=== PATIENT | female | born 1995 | race Caucasian/White ===

== ENCOUNTER 2016-07-03 16:30 | Emergency (ER) | payer BC ==
[2016-07-03 17:14] VITALS: BP 100/65
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
[2016-07-03] MEDS ORDERED: Ibuprofen 600 MG Tab PO ONE (18:26)
== END 2016-07-03 21:01 | disposition home or self-care (01) ==
LOC: JD.ED 16:30
DX: F41.8 Other specified anxiety disorders (principal); K21.9 Gastro-esophageal reflux disease without esophagitis; Z79.899 Other long term (current) drug therapy
CPT/HCPCS: 36415; 80053; 80306; 81001; 84443; 84702; 85025; 99285; A9270; 99283

== ENCOUNTER 2016-10-01 12:43 | Emergency (ER) | payer BC ==
[2016-10-01 12:54] VITALS: BP 115/69
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
== END 2016-10-01 14:45 | disposition home or self-care (01) ==
LOC: JD.ED 12:43
DX: S66.912A Strain of unspecified muscle, fascia and tendon at wrist and hand level, left hand, initial encounter (principal); F31.9 Bipolar disorder, unspecified; K21.9 Gastro-esophageal reflux disease without esophagitis; Z79.899 Other long term (current) drug therapy; Y04.0XXA Assault by unarmed brawl or fight, initial encounter
CPT/HCPCS: 99283; 99284

== ENCOUNTER 2018-04-20 06:58 | Inpatient (IN) | payer OTHER ==
[2018-04-20] MEDS ORDERED: Misoprostol 25 MCG (1/4 of 100 MCG) Tab ONE (07:53)
[2018-04-20] MEDS ORDERED: Bupivacaine 0.5% 30 ML SDV ONE (08:01)
--- NOTE | 2018-04-20 08:11 | PCM.LDHP ---
L&D History of Present Illness - General Date of Service: 04/20/18 Admit Problem/Dx: Admission Diagnosis/Problem Admission Diagnosis/Problem Source of Information: Patient History Limitations: Reports: No Limitations - History of Present Illness Introduction:: 23-year-old 002 [place] 04/21/18. Estimated gestational age 39 weeks and 6 days. Presented to labor and delivery for induction of labor GBS negative. Patient has gestational diabetes taking glyburide 2.5 mg at breakfast and lunch and supper. Blood type A- antibody screen negative hemoglobin hematocrit 13.1 39.3 on 09/19/17. Platelets 209,000. Rubella immune. Serology nonreactive. Urine culture mixed marjan. Hepatitis B surface antigen negative. HIV negative. GC and chlamydia probe negative TSH within normal limits. 01/17/18 hemoglobin/hematocrit 10.3/32.6 platelets 178,000, 1 hour OB glucose screen 141. Three-hour glucose tolerance test fasting 73, 1 hour 143, two-hour 166, 3 hour 157. Antibody screen negative RhoGam given on 01/17/18. RPR nonreactive. 03/09/18 hemoglobin/hematocrit 10.5/35.0 platelets 154,000. 03/27/18 group B strep negative. Plan induction and delivery. This note was created, at least in part, by the use of [employer] voice dictation system. Inadvertent typographical errors, due to software recognition problems, may exist. Improves with: Reports: None Worsens with: Reports: None Associated Symptoms: Reports: N - Related Data Allergies/Adverse Reactions: Allergies Allergy/AdvReac Type Severity Reaction Status Date / Time No Known Allergies Allergy Verified 10/01/16 12:53 Home Medications: Home Meds Acetaminophen [Tylenol] 650 mg PO Q4H PRN #0 tablet 12/17/15 [Rx] Ibuprofen [IJD: Ibuprofen] 600 mg PO Q6H PRN #0 tablet 12/17/15 [Rx] Control 1 tab PO DAILY 07/03/16 [History] lamoTRIgine [Lamotrigine] 200 mg PO DAILY 07/03/16 [History] ClonazePAM [KlonoPIN] 0.25 mg PO BID PRN 10/01/16 [History] QUEtiapine [SEROquel] 25 mg PO BEDTIME 10/01/16 [History] Past Medical History - Past Health History Medical/Surgical History: Denies Medical/Surgical History Cardiovascular History: Reports: None Respiratory History: Reports: None Gastrointestinal History: Reports: GERD Genitourinary History: Reports: None 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: Musculoskeletal History: Reports: Fibromyalgia Neurological History: Reports: None Psychiatric History: Reports: Anxiety, Bipolar, Depression Other Psychiatric History: ;hypermania Endocrine/Metabolic History: Reports: None Hematologic History: Reports: Anemia Other Hematologic History: induced Immunologic History: Reports: None Oncologic (Cancer) History: Reports: None Dermatologic History: Reports: None - Past Surgical History Head Surgeries/Procedures: Reports: None Social & Family History - Family History Family Medical History: Noncontributory - Caffeine Use Caffeine Use: Reports: Coffee H&P Review of Systems - Review of Systems: Review Of Systems: See Below General: Reports: No Symptoms HEENT: Reports: No Symptoms Pulmonary: Reports: No Symptoms Cardiovascular: Reports: No Symptoms Gastrointestinal: Reports: No Symptoms Genitourinary: Reports: No Symptoms Musculoskeletal: Reports: No Symptoms Skin: Reports: No Symptoms Psychiatric: Reports: No Symptoms Neurological: Reports: No Symptoms Hematologic/Lymphatic: Reports: No Symptoms Immunologic: Reports: No Symptoms L&D Exam - Exam Exam: See Below - OB Specific Fundal Height In cm: 39 Movement: Active Heart Tones: Present Heart Tones per Min: 135 Heart Rate (FHR) Variability: Moderate (6-25 bmp) Presentation: Vertex - Conteh Score Conteh Score Cervix Position: Posterior Conteh Score Consistency: Soft Conteh Score Effacement: 0-30% Conteh Score Dilation: 1-2 cm Conteh Score Infant's Station: -1 ,0 Conteh Score Total: 5 - Exam General: Alert, Oriented HEENT: Conjunctiva Clear, Mucosa Moist & [place], Pupils Equal, PERRLA Neck: Supple, Trachea Midline Lungs: Clear to Auscultation, Normal Respiratory Effort Cardiovascular: Regular Rate, Regular Rhythm GI/Abdominal Exam: Normal Bowel Sounds, Soft Genitourinary: Normal external exam Extremities: Normal Inspection, Normal Range of Motion, Non-Tender, No Pedal Edema, Normal Capillary Refill Skin: Warm, Dry, Intact Neurological: Reflexes Equal Bilateral Psychiatric: Alert, Normal Affect, Normal Mood - Problem List (1) 39 weeks gestation of SNOMED Code(s): 55773437 ICD Code: Z3A.39 - 39 WEEKS GESTATION OF Status: Acute Current Visit: Yes (2) Gestational diabetes mellitus (GDM) affecting third SNOMED Code(s): 63368108477818 ICD Code: O24.419 - GESTATIONAL DIABETES MELLITUS IN , UNSP CONTROL Status: Acute Current Visit: Yes Problem List Initiated/Reviewed/Updated: No Assessment/Plan Comment:: Plan induction and delivery. For Cytotec 25 g placed at 0800 hrs.
[2018-04-20] MEDS ORDERED: Sodium Chloride 0.9% 10 ML Syringe FLUSH PRN (08:15)
[2018-04-20] MEDS ORDERED: Nalbuphine 20 MG/ML 1 ML Syringe IVPUSH PRN (08:15)
[2018-04-20] MEDS ORDERED: Oxytocin/Lactated Ringers 10 UNIT/1,000 ML BAG IV SCH ×2 (08:15)
[2018-04-20] MEDS ORDERED: Misoprostol 25 MCG (1/4 of 100 MCG) Tab VAG ONE (08:19)
[2018-04-20] MEDS ORDERED: Misoprostol 25 MCG (1/4 of 100 MCG) Tab VAG SCH (11:00)
--- NOTE | 2018-04-20 11:24 | PCM.SN ---
- Free Text/Narrative Note: Amniotomy performed at 111904/20/18 clear fluid cervix 2-3 cm dilated 70% effaced soft posterior cephalic presentation -1 station heart tones category 1
[2018-04-20] MEDS ORDERED: Ondansetron 4 MG/2 ML SDV IVPUSH PRN (11:42)
[2018-04-20] MEDS ORDERED: fentaNYL 100 MCG/2 ML SDV EPIDUR PRN (11:42)
[2018-04-20] MEDS ORDERED: diphenhydrAMINE 50 MG/ML SDV IVPUSH PRN (11:42)
[2018-04-20] MEDS ORDERED: ePHEDrine 50 MG/ML SDV IVPUSH PRN (11:42)
[2018-04-20] MEDS ORDERED: fentaNYL/Bupivacaine-NS 2 MCG/ML-0.125%/PF 100 ML Bag EP SCH (11:45)
[2018-04-20] MEDS: Lactated Ringers 1,000 ML IV SCH ×3 (12:14→13:00)
--- NOTE | 2018-04-20 12:36 | PCM.PREANE ---
Preanesthetic Assessment - Anesthesia/Transfusion/Family Hx Anesthesia History: Prior Anesthesia Without Reaction Family History of Anesthesia Reaction: No Transfusion History: Prior Transfusion Without Reaction - Review of Systems General: No Symptoms Pulmonary: No Symptoms Cardiovascular: No Symptoms Gastrointestinal: Abdominal Pain Neurological: No Symptoms Other: Reports: None - Physical Assessment O2 Sat by Pulse Oximetry: 97 Respiratory Rate: 18 Vital Signs: Last Vital Signs Temp 37.1 C 04/20/18 07:23 Pulse 86 04/20/18 07:23 Resp 18 04/20/18 07:23 BP 107/77 04/20/18 07:23 Pulse Ox 97 04/20/18 07:23 Height: 1.65 m Weight: 89.675 kg ASA Class: 2 Mental Status: Alert & Oriented x3 Airway Class: Mallampati = 1 Dentition: Reports: Normal Dentition Thyro-Mental Finger Breadths: 3 Mouth Opening Finger Breadths: 3 ROM/Head Extension: Full Lungs: Clear to Auscultation, Normal Respiratory Effort Cardiovascular: Regular Rate, Regular Rhythm - Lab Values: Laboratory Last Values WBC 10.29 K/mm3 (3.98-10.04) H 04/20/18 08:30 RBC 4.08 M/mm3 (3.98-5.22) 04/20/18 08:30 Hgb 10.8 gm/L (11.2-15.7) L 04/20/18 08:30 Hct 34.6 % (34.1-44.9) 04/20/18 08:30 MCV 84.8 fl (79.4-94.8) 04/20/18 08:30 MCH 26.5 pg (25.6-32.2) 04/20/18 08:30 MCHC 31.2 g/dl (32.2-35.5) L 04/20/18 08:30 RDW Std Deviation 60.3 fL (36.4-46.3) H 04/20/18 08:30 Plt Count 122 K/mm3 (182-369) L 04/20/18 08:30 MPV 11.5 fl (9.4-12.3) 04/20/18 08:30 Neut % (Auto) 79.6 % (34.0-71.1) H 04/20/18 08:30 Lymph % (Auto) 14.1 % (19.3-51.7) L 04/20/18 08:30 Person % (Auto) 4.7 % (4.7-12.5) 04/20/18 08:30 Eos % (Auto) 1.0 (0.7-5.8) 04/20/18 08:30 Baso % (Auto) 0.1 % (0.1-1.2) 04/20/18 08:30 Neut # (Auto) 8.20 K/mm3 (1.56-6.13) H 04/20/18 08:30 Lymph # (Auto) 1.45 K/mm3 (1.18-3.74) 04/20/18 08:30 Person # (Auto) 0.48 K/mm3 (0.24-0.36) H 04/20/18 08:30 Eos # (Auto) 0.10 K/mm3 (0.04-0.36) 04/20/18 08:30 Baso # (Auto) 0.01 K/mm3 (0.01-0.08) 04/20/18 08:30 Blood Type A NEGATIVE 04/20/18 08:30 Gel Antibody Screen Positive 04/20/18 08:30 Crossmatch See Detail 04/20/18 08:30 - Allergies Allergies/Adverse Reactions: Allergies Allergy/AdvReac Type Severity Reaction Status Date / Time No Known Allergies Allergy Verified 10/01/16 12:53 - Acknowledgements Anesthesia Type Planned: Epidural Pt an Appropriate Candidate for the Planned Anesthesia: Yes Alternatives and Risks of Anesthesia Discussed w Pt/Guardian: Yes Pt/Guardian Understands and Agrees with Anesthesia Plan: Yes PreAnesthesia Questionnaire - Past Health History Medical/Surgical History: Denies Medical/Surgical History Cardiovascular History: Reports: None Respiratory History: Reports: None Gastrointestinal History: Reports: GERD Genitourinary History: Reports: 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: Musculoskeletal History: Reports: Fibromyalgia Neurological History: Reports: None Psychiatric History: Reports: Anxiety, Bipolar, Depression, PTSD Other Psychiatric History: ;hypermania Endocrine/Metabolic History: Reports: None Hematologic History: Reports: Anemia Other Hematologic History: induced Immunologic History: Reports: None Oncologic (Cancer) History: Reports: None Dermatologic History: Reports: None - Past Surgical History Head Surgeries/Procedures: Reports: None - SUBSTANCE USE Smoking Status *Q: Never Smoker Second Hand Smoke Exposure: No Recreational Drug Use History: No - HOME MEDS Home Medications: Home Meds Acetaminophen [Tylenol] 650 mg PO Q4H PRN #0 tablet 12/17/15 [Rx] Ibuprofen [IJD: Ibuprofen] 600 mg PO Q6H PRN #0 tablet 12/17/15 [Rx] Control 1 tab PO DAILY 07/03/16 [History] lamoTRIgine [Lamotrigine] 200 mg PO DAILY 07/03/16 [History] ClonazePAM [KlonoPIN] 0.25 mg PO BID PRN 10/01/16 [History] QUEtiapine [SEROquel] 25 mg PO BEDTIME 10/01/16 [History] - CURRENT (IN HOUSE) MEDS Current Meds: Current Medications Diphenhydramine HCl (Benadryl) 25 mg IVPUSH Q6H PRN PRN Reason: Pruritis Ephedrine Sulfate (Ephedrine Sulfate) 5 mg IVPUSH ASDIRECTED PRN PRN Reason: Hypotension Fentanyl (Sublimaze) 100 mcg EPIDUR ONETIME PRN PRN Reason: Pain Last Admin: 04/20/18 12:34 Dose: 100 mcg Fentanyl/Bupivacaine HCl (Rcmnyxzo-Sstor-Ya 2 Mcg/Ml-0.125%) 100 ml EP ASDIRECTED HARPER Last Admin: 04/20/18 12:34 Dose: 100 ml Lactated Ringer's (Ringers, Lactated) 1,000 mls @ 100 mls/hr IV ASDIRECTED HARPER Last Admin: 04/20/18 12:15 Dose: 100 mls/hr Oxytocin/Lactated Ringer's (Pitocin In Lr 10 Units/1,000 Ml) 10 unit in 1,000 mls @ 12 mls/hr IV TITRATE HARPER; Protocol Oxytocin/Lactated Ringer's (Pitocin In Lr 10 Units/1,000 Ml) 10 unit in 1,000 mls @ 500 mls/hr IV .CONTINUOUS HARPER Misoprostol (Cytotec) 50 mcg VAG Q3HR HAREPR Nalbuphine HCl (Nubain) 10 mg IVPUSH Q2H PRN PRN Reason: pain Ondansetron HCl (Zofran) 4 mg IVPUSH ONETIME PRN PRN Reason: Nausea/Vomiting Sodium Chloride (Saline Flush) 10 ml FLUSH ASDIRECTED PRN PRN Reason: Keep Vein Open Discontinued Medications Bupivacaine HCl (Marcaine 0.5%) Confirm Administered Dose 30 ml .ROUTE .STK-MED ONE Stop: 04/20/18 08:02 Misoprostol (Cytotec) Confirm Administered Dose 25 mcg .ROUTE .STK-MED ONE Stop: 04/20/18 07:54 Misoprostol (Cytotec) 25 mcg VAG ONETIME ONE Stop: 04/20/18 08:20 Last Admin: 04/20/18 07:55 Dose: 25 mcg
--- NOTE | 2018-04-20 16:06 | PCM.SN ---
- Free Text/Narrative Note: Cervix 8 cm, 100% effaced, soft, posterior, vertex at 0 station. Cat I FHR
[2018-04-20] MEDS ORDERED: Misoprostol 200 MCG Tab PO ONE (16:15)
[2018-04-20] MEDS ORDERED: Oxytocin/Lactated Ringers 20 UNIT/1,000 ML BAG IV SCH (16:15)
--- NOTE | 2018-04-20 16:54 | PCM.DEL ---
L & D Note - General Info Date of Service: 04/20/18 Mother's Due Date: 04/21/18 - Delivery Note Labor: Augmented by ARM, Augmented by Oxytocin Cervical Ripening Method: Misoprostil (25 mcg x1) Delivery Outcome: Livebirth (Male liveborn 04/20/18 at 1635 hrs. DOUGLAS no nuchal cord Apgars 8/9 weight 3780 grams/8 pounds 5.3 ounces) Infant Delivery Method: Spontaneous Vaginal Delivery-Single Delivery Mode: Spontaneous Presentation: Right Occiput Anterior (DOUGLAS) Nuchal Cord: None Prep: Povidone-Iodine (Betadine Anesthesia Type: Epidural Amniotic Fluid Description: Clear Episiotomy Type: None Laceration: 1st Degree (Approximate 1 x 1 cm sutured with 3-0 Monocryl times one gkadfj-wv-gukps suture.) Suture type: Other (Monocryl) Suture size: 3-0 Placenta: Intact, Spontaneous (Examined intact discarded [id number]) Cord: 3 Vessels Estimated Blood Loss: 250 Resuscitation Needed: No : Suctioned, Bulb Syringe, Stimulated, Warmed, [place] Used, Warmer Used Provider: Pablo Cerna Score 1 min: 8 Score 5 min: 9 - General Info Date of Service: 04/20/18 Functional Status: Reports: Pain Controlled - Review of Systems General: Reports: No Symptoms HEENT: Reports: No Symptoms Pulmonary: Reports: No Symptoms Cardiovascular: Reports: No Symptoms Gastrointestinal: Reports: No Symptoms Genitourinary: Reports: No Symptoms Musculoskeletal: Reports: No Symptoms Skin: Reports: No Symptoms Neurological: Reports: No Symptoms Psychiatric: Reports: No Symptoms - Patient Data Vitals - Most Recent: Last Vital Signs Temp 98.7 F 04/20/18 07:23 Pulse 86 04/20/18 07:23 Resp 18 04/20/18 12:36 BP 107/77 04/20/18 07:23 Pulse Ox 97 04/20/18 12:36 Weight - Most Recent: 197 lb 11.2 oz Lab Results Last 24 Hours: Laboratory Results - last 24 hr 04/20/18 04/20/18 Range/Units 08:30 08:30 WBC 10.29 H (3.98-10.04) K/mm3 RBC 4.08 (3.98-5.22) M/mm3 Hgb 10.8 L (11.2-15.7) gm/L Hct 34.6 (34.1-44.9) % MCV 84.8 (79.4-94.8) fl MCH 26.5 (25.6-32.2) pg MCHC 31.2 L (32.2-35.5) g/dl RDW Std Deviation 60.3 H (36.4-46.3) fL Plt Count 122 L (182-369) K/mm3 MPV 11.5 (9.4-12.3) fl Neut % (Auto) 79.6 H (34.0-71.1) % Lymph % (Auto) 14.1 L (19.3-51.7) % [place] % (Auto) 4.7 (4.7-12.5) % Eos % (Auto) 1.0 (0.7-5.8) Baso % (Auto) 0.1 (0.1-1.2) % Neut # (Auto) 8.20 H (1.56-6.13) K/mm3 Lymph # (Auto) 1.45 (1.18-3.74) K/mm3 [place] # (Auto) 0.48 H (0.24-0.36) K/mm3 Eos # (Auto) 0.10 (0.04-0.36) K/mm3 Baso # (Auto) 0.01 (0.01-0.08) K/mm3 Blood Type A NEGATIVE Gel Antibody Screen Positive Crossmatch See Detail Med Orders - Current: Current Medications Diphenhydramine HCl (Benadryl) 25 mg IVPUSH Q6H PRN PRN Reason: Pruritis Last Admin: 04/20/18 14:57 Dose: 25 mg Ephedrine Sulfate (Ephedrine Sulfate) 5 mg IVPUSH ASDIRECTED PRN PRN Reason: Hypotension Fentanyl (Sublimaze) 100 mcg EPIDUR ONETIME PRN PRN Reason: Pain Last Admin: 04/20/18 12:34 Dose: 100 mcg Fentanyl/Bupivacaine HCl (Hiypnlrp-Glppc-Kd 2 Mcg/Ml-0.125%) 100 ml EP ASDIRECTED HARPER Last Admin: 04/20/18 12:34 Dose: 100 ml Lactated Ringer's (Ringers, Lactated) 1,000 mls @ 100 mls/hr IV ASDIRECTED HARPER Last Admin: 04/20/18 13:00 Dose: 100 mls/hr Oxytocin/Lactated Ringer's (Pitocin In Lr 10 Units/1,000 Ml) 10 unit in 1,000 mls @ 12 mls/hr IV TITRATE HARPER; Protocol Last Titration: 04/20/18 14:46 Dose: 1,444 munits/min, 8,664 mls/hr Oxytocin/Lactated Ringer's (Pitocin In Lr 10 Units/1,000 Ml) 10 unit in 1,000 mls @ 500 mls/hr IV .CONTINUOUS HARPER Oxytocin 20 unit/ Lactated (Ringer's) 1,002 mls @ 1,503 mls/hr IV ASDIRECTED HARPER Oxytocin/Lactated Ringer's (Pitocin In Lr 20 Units/1,000 Ml) 20 unit in 1,000 mls @ 500 mls/hr IV ASDIRECTED HARPER Misoprostol (Cytotec) 50 mcg VAG Q3HR HARPER Nalbuphine HCl (Nubain) 10 mg IVPUSH Q2H PRN PRN Reason: pain Ondansetron HCl (Zofran) 4 mg IVPUSH ONETIME PRN PRN Reason: Nausea/Vomiting Sodium Chloride (Saline Flush) 10 ml FLUSH ASDIRECTED PRN PRN Reason: Keep Vein Open Discontinued Medications Bupivacaine HCl (Marcaine 0.5%) Confirm Administered Dose 30 ml .ROUTE .STK-MED ONE Stop: 04/20/18 08:02 Oxytocin 20 unit/ Lactated (Ringer's) 1,002 mls @ 1,503 mls/hr IV TITRATE HARPER Misoprostol (Cytotec) Confirm Administered Dose 25 mcg .ROUTE .STK-MED ONE Stop: 04/20/18 07:54 Misoprostol (Cytotec) 25 mcg VAG ONETIME ONE Stop: 04/20/18 08:20 Last Admin: 04/20/18 07:55 Dose: 25 mcg Misoprostol (Cytotec) 400 mcg PO ONETIME ONE Stop: 04/20/18 16:16 - Exam General: Alert, Oriented HEENT: Pupils Equal Neck: Supple GI/Abdominal Exam: Soft, Non-Tender (Female) Exam: Normal External Exam Extremities: Normal Inspection, Normal Range of Motion, Non-Tender, No Pedal Edema, Normal Capillary Refill Skin: Warm, Dry, Intact Psy/Mental Status: Alert, Normal Affect, Normal Mood - Problem List & Annotations (1) 39 weeks gestation of SNOMED Code(s): 26217156 Code(s): Z3A.39 - 39 WEEKS GESTATION OF Status: Acute Current Visit: Yes (2) Gestational diabetes mellitus (GDM) affecting third SNOMED Code(s): 30074579550876 Code(s): O24.419 - GESTATIONAL DIABETES MELLITUS IN , UNSP CONTROL Status: Acute Current Visit: Yes (3) First degree perineal laceration SNOMED Code(s): 37917513 Code(s): O70.0 - FIRST DEGREE PERINEAL LACERATION DURING DELIVERY Status: Acute Current Visit: Yes (4) Encounter for full-term uncomplicated delivery SNOMED Code(s): 87716147, 240145767 Code(s): O80 - ENCOUNTER FOR FULL-TERM UNCOMPLICATED DELIVERY Status: Acute Current Visit: Yes - Problem List Review Problem List Initiated/Reviewed/Updated: No - My Orders Last 24 Hours: My Active Orders 04/20/18 08:15 Lactated Ringers [Ringers, Lactated] 1,000 ml IV ASDIRECTED Nalbuphine [Nubain] 10 mg IVPUSH Q2H PRN Oxytocin/Lactated Ringers [Pitocin in LR 10 Units/1,000 ML] 10 unit in 1,000 ml IV .CONTINUOUS Oxytocin/Lactated Ringers [Pitocin in LR 10 Units/1,000 ML] 10 unit in 1,000 ml IV TITRATE Sodium Chloride 0.9% [Saline Flush] 10 ml FLUSH ASDIRECTED PRN Resuscitation Status Routine 04/20/18 08:16 Patient Status [ADT] Routine Activity as Tolerated [RC] PFP Communication Order [RC] ASDIRECTED Non Stress Test [RC] PER UNIT ROUTINE Notify Provider [RC] PFP Notify Provider [RC] PRN Vital Signs [RC] PER UNIT ROUTINE Electronic Heart Tones Ext w TOCO [WOMSER] Routine Electronic Heart Tones Internal [WOMSER] Per Unit Routine Peripheral IV Insertion Adult [OM.PC] Routine 04/20/18 08:17 Heart Tones [RC] ASDIRECTED Peripheral IV Care [RC] . DIRECTED 04/20/18 08:30 ANTIBODY IDENTIFICATION [BBK] Stat RAPID PLASMA REAGIN,RPR [CHEM] Routine RED BLOOD CELLS LP [BBK] Routine TYPE AND SCREEN [BBK] Stat 04/20/18 11:00 miSOPROStol [Cytotec] 50 mcg VAG Q3HR 04/20/18 16:15 Oxytocin [Pitocin] 20 unit Lactated Ringers [Ringers, Lactated] 1,000 ml IV ASDIRECTED Oxytocin/Lactated Ringers [Pitocin in LR 20 Units/1,000 ML] 20 unit in 1,000 ml IV ASDIRECTED 04/20/18 Lunch Consistent Carbohydrate Diet [DIET] - Plan Plan:: Plan induction and delivery. For Cytotec 25 g placed at 0800 hrs.
[2018-04-20] MEDS ORDERED: Witch Hazel Medicated Pads 100/Jar TOP PRN (17:05)
[2018-04-20] MEDS ORDERED: Benzocaine/Menthol 20%-0.5% Spray 56 GM Canister TOP PRN (17:05)
[2018-04-20] MEDS ORDERED: Docusate Sodium 100 MG Cap PO PRN (17:05)
[2018-04-20] MEDS ORDERED: Lanolin 100% Cream 7 GM Tube TOP PRN (17:05)
[2018-04-20] MEDS: Ibuprofen 600 MG Tab PO PRN (21:21)
[2018-04-20] MEDS ORDERED: Bupivacaine 0.25% 10 ML SDV ONE (22:00)
[2018-04-20] MEDS ORDERED: Lidocaine 1.5% with EPINEPHrine 1:200,000 5 ML Amp ONE (22:00)
[2018-04-20] MEDS: Misoprostol 200 MCG Tab PO SCH (22:02)
[2018-04-20] MEDS: Acetaminophen 325 MG Tab PO PRN (22:58)
[2018-04-21] MEDS: Ibuprofen 600 MG Tab PO PRN ×5 (03:27→22:35)
[2018-04-21] MEDS: Misoprostol 200 MCG Tab PO SCH ×2 (04:19→10:02)
[2018-04-21] MEDS: Acetaminophen 325 MG Tab PO PRN ×2 (04:31→23:02)
--- NOTE | 2018-04-21 09:39 | PCM.SN ---
- Free Text/Narrative Note: day 1 Patient is afebrile. Abdomen soft uterus involuting normally. No heavy vaginal bleeding. No leg cramping Patient was given 400 g Cytotec 200 per each cheek buccal cavity at delivery and 200 g by mouth every 6 hours for another 3 doses. Bleeding has been minimal. (Patient had hemorrhage with prior delivery (second delivery )) Patient will probably be able to be dismissed tomorrow 04/22/18. Dr. Lundy will see patient on rounds and dismissed when ready.
[2018-04-22] MEDS: Ibuprofen 600 MG Tab PO PRN ×2 (02:29→09:05)
--- NOTE | 2018-04-22 09:32 | PCM.DCSUM1 ---
Discharge Summary - Hospital Course Free Text/Narrative:: 23-year-old 1 para 1001 white female admitted for elective induction of labor at 39 weeks gestational age. Delivered without concerns. History of gestational diabetes on glyburide therapy and recently well controlled. She delivered a live male on 04/20/2018 at 1635 hrs. Apgars were 8 and 9. Weight was 3780 g (8 pounds 5.3 ounces). In right occiput anterior position. She had a first-degree laceration which was sutured in a routine fashion with 3- 0 Monocryl. patient is done well. She is nursing. Vital signs and stable. She has minimal lochia, was ambulating well and voiding without problems. She is desiring discharge home. Diagnosis: Stroke: No - Discharge Data Discharge Date: 04/22/18 Discharge Disposition: Home, Self-Care 01 Condition: Good - Patient Instructions Diet: Regular Diet as Tolerated (Nursing diet with increased calories calcium is recommended) Activity: As Tolerated ([place] or tampons until bleeding resolves) Driving: May Drive Today Showering/Bathing: May Shower (May take a bath) Notify Provider of: Fever, Increased Pain, Swelling and Redness, Nausea and/or Vomiting - Discharge Plan Home Medications: Home Meds Acetaminophen [Tylenol] 650 mg PO Q4H PRN #0 tablet 12/17/15 [Rx] Ibuprofen [IJD: Ibuprofen] 600 mg PO Q6H PRN #0 tablet 12/17/15 [Rx] lamoTRIgine [Lamotrigine] 200 mg PO DAILY 07/03/16 [History] Patient Handouts: Breast Pumping Tips, Vaginal Delivery, Care After Referrals: Pablo Cerna MD [Primary Care Provider] - - Discharge Summary/Plan Comment DC Time >30 min.: No Discharge Summary/Plan Comment: Discharge instructions: 1. Discharge home 2. Diet, activity and follow-up discussed with patient. Recommend nursing diet with increased calories and calcium. 3. Precautions given concern increased pain, bleeding, temperature, signs/ symptoms of DVT/PE. 4. Medications per home medication was printed, discussed with and given to the patient. 5. Return to clinic-Dr. Lundy[facility] in 2 weeks. Diagnosis: 1. Term -delivered 2. History of gestational diabetes, controlled with diet and glyburide therapy Condition: Good - Patient Data Vitals - Most Recent: Last Vital Signs Temp 36.6 C 04/22/18 05:02 Pulse 49 L 04/22/18 05:02 Resp 12 04/22/18 05:02 BP 101/46 L 04/22/18 05:02 Pulse Ox 99 04/22/18 05:02 Weight - Most Recent: 89.675 kg Lab Results - Last 24 hrs: Laboratory Results - last 24 hr 04/20/18 04/21/18 Range/Units 08:30 06:28 RPR Non-reactive (NONREACTIVE) Blood Type A NEGATIVE Screen 1 ros/5 flds - neg RhIG Candidate? Yes Rhogam Indicated Yes, baby rh pos H Med Orders - Current: Current Medications Acetaminophen (Tylenol) 650 mg PO Q4H PRN PRN Reason: mild pain or fever Last Admin: 04/21/18 23:02 Dose: 650 mg Benzocaine/Menthol (Dermoplast Pain Relief [place]) 0 gm TOP ASDIRECTED PRN PRN Reason: Perineal Comfort Measure Last Admin: 04/20/18 20:57 Dose: 1 can Docusate Sodium (Colace) 100 mg PO BID PRN PRN Reason: Constipation Emollient Ointment (Lansinoh Hpa) 0 gm TOP ASDIRECTED PRN PRN Reason: Sore Nipples Last Admin: 04/21/18 02:56 Dose: 1 tube Ibuprofen (Motrin) 600 mg PO Q4H PRN PRN Reason: Mild pain or fever Last Admin: 04/22/18 09:05 Dose: 600 mg Witch Pat (Tucks) 1 pad TOP ASDIRECTED PRN PRN Reason: Hemorrhoid pain Last Admin: 04/20/18 20:57 Dose: 1 container Discontinued Medications Bupivacaine HCl (Marcaine 0.5%) Confirm Administered Dose 30 ml .ROUTE .STK-MED ONE Stop: 04/20/18 08:02 Bupivacaine HCl (Sensorcaine-Mpf 0.25%) 10 ml .ROUTE .STK-MED ONE Stop: 04/20/18 22:01 Diphenhydramine HCl (Benadryl) 25 mg IVPUSH Q6H PRN PRN Reason: Pruritis Last Admin: 04/20/18 14:57 Dose: 25 mg Ephedrine Sulfate (Ephedrine Sulfate) 5 mg IVPUSH ASDIRECTED PRN PRN Reason: Hypotension Fentanyl (Sublimaze) 100 mcg EPIDUR ONETIME PRN PRN Reason: Pain Last Admin: 04/20/18 12:34 Dose: 100 mcg Fentanyl/Bupivacaine HCl (Orbsuzdo-Ywilb-Kg 2 Mcg/Ml-0.125%) 100 ml EP ASDIRECTED HARPER Last Admin: 04/20/18 12:34 Dose: 100 ml Lactated Ringer's (Ringers, Lactated) 1,000 mls @ 100 mls/hr IV ASDIRECTED HARPER Last Admin: 04/20/18 13:00 Dose: 100 mls/hr Oxytocin/Lactated Ringer's (Pitocin In Lr 10 Units/1,000 Ml) 10 unit in 1,000 mls @ 12 mls/hr IV TITRATE HARPER; Protocol Last Titration: 04/20/18 14:46 Dose: 1,444 munits/min, 8,664 mls/hr Oxytocin/Lactated Ringer's (Pitocin In Lr 10 Units/1,000 Ml) 10 unit in 1,000 mls @ 500 mls/hr IV .CONTINUOUS HARPER Oxytocin 20 unit/ Lactated (Ringer's) 1,002 mls @ 1,503 mls/hr IV TITRATE HARPER Oxytocin 20 unit/ Lactated (Ringer's) 1,002 mls @ 1,503 mls/hr IV ASDIRECTED HARPER Oxytocin/Lactated Ringer's (Pitocin In Lr 20 Units/1,000 Ml) 20 unit in 1,000 mls @ 500 mls/hr IV ASDIRECTED HARPER Last Admin: 04/20/18 16:36 Dose: 500 mls/hr Lidocaine/Epinephrine (Xylocaine-Mpf 1.5% W/Epinephrine 1:200,000) 5 ml .ROUTE .STK-MED ONE Stop: 04/20/18 22:01 Misoprostol (Cytotec) Confirm Administered Dose 25 mcg .ROUTE .STK-MED ONE Stop: 04/20/18 07:54 Misoprostol (Cytotec) 25 mcg VAG ONETIME ONE Stop: 04/20/18 08:20 Last Admin: 04/20/18 07:55 Dose: 25 mcg Misoprostol (Cytotec) 50 mcg VAG Q3HR HARPER Misoprostol (Cytotec) 400 mcg PO ONETIME ONE Stop: 04/20/18 16:16 Last Admin: 04/20/18 16:39 Dose: 400 mcg Misoprostol (Cytotec) 200 mcg PO Q6H HARPER Stop: 04/21/18 10:01 Last Admin: 04/21/18 10:02 Dose: 200 mcg Nalbuphine HCl (Nubain) 10 mg IVPUSH Q2H PRN PRN Reason: pain Ondansetron HCl (Zofran) 4 mg IVPUSH ONETIME PRN PRN Reason: Nausea/Vomiting Sodium Chloride (Saline Flush) 10 ml FLUSH ASDIRECTED PRN PRN Reason: Keep Vein Open
[2018-04-22 11:01] VITALS: BP 110/65
== END 2018-04-22 10:47 | disposition home or self-care (01) | DRG 807 ==
LOC: JD.OB 06:58 → OBSVTOIN 15:35 → JD.OB 15:36
PROVIDERS: ADMIT Obstetrics & Gynecology; ATTEND Obstetrics & Gynecology
PROC: 0HQ9XZZ Repair Perineum Skin, External Approach (ICD-10-PCS; principal; 2018-04-20)
PROC: 10907ZC Drainage of Amniotic Fluid, Therapeutic from Products of Conception, Via Natural or Artificial Opening (ICD-10-PCS; principal; 2018-04-20)
PROC: 3E0P7VZ Introduction of Hormone into Female Reproductive, Via Natural or Artificial Opening (ICD-10-PCS; principal; 2018-04-20)
PROC: 10E0XZZ Delivery of Products of Conception, External Approach (ICD-10-PCS; principal; 2018-04-20)
PROC: 00HU33Z Insertion of Infusion Device into Spinal Canal, Percutaneous Approach (ICD-10-PCS; 2018-04-20)
PROC: 3E0R3BZ Introduction of Anesthetic Agent into Spinal Canal, Percutaneous Approach (ICD-10-PCS; 2018-04-20)
DX: O24.425 Gestational diabetes mellitus in childbirth, controlled by oral hypoglycemic drugs (principal); Z37.0 Single live birth; Z3A.39 39 weeks gestation of pregnancy; O70.0 First degree perineal laceration during delivery; O99.62 Diseases of the digestive system complicating childbirth; K21.9 Gastro-esophageal reflux disease without esophagitis; O99.344 Other mental disorders complicating childbirth; F41.9 Anxiety disorder, unspecified; F31.9 Bipolar disorder, unspecified; O75.89 Other specified complications of labor and delivery; M79.7 Fibromyalgia; Z79.899 Other long term (current) drug therapy
CPT/HCPCS: 01967; 36415; 51702; 59025; 59409; 85025; 86592; A9270-GY; J1200; J2590; J2790; J3010; J3490; J7120